=== PATIENT | male | born 1960 | race Caucasian/White ===

== ENCOUNTER 2022-05-08 08:59 | Day surgery (SDC) | payer OTHER ==
--- NOTE | 2022-05-08 07:42 | HP ---
DATE OF SURGERY: 05/08/2022 HISTORY OF PRESENT ILLNESS: The patient is a 61-year-old last colonoscopy eight years or so. No bloody stools. Family history negative for colon cancer. He does have family history of prostate cancer, diabetes and breast cancer. PAST MEDICAL HISTORY: Diabetes type II, hyperlipidemia. PAST SURGICAL HISTORY: Laser eye surgery. Prostate biopsy in the past. MEDICATIONS: Rosuvastatin, glipizide, Jardiance, PreserVision. ALLERGIES: NKDA. FAMILY HISTORY: Negative for colon cancer. He does have family history of prostate cancer, diabetes and breast cancer. SOCIAL HISTORY: No smoking or alcohol use. REVIEW OF SYSTEMS: Fourteen systems reviewed. No chest pain or palpitations. Other systems negative or noncontributory as above and per preadmission questionnaire. PHYSICAL EXAMINATION: GENERAL: No acute distress. HEENT: Sclerae nonicteric. NECK: No JVD. CHEST: Equal excursion, nonlabored breathing. CVS: Regular rate and rhythm. ABDOMEN: Soft. No peritoneal signs. EXTREMITIES: No significant edema. NEURO: Alert, oriented, moving extremities symmetrically. RECTAL: Deferred timed to endoscopy exam. PSYCH: Appropriate mood and affect. IMPRESSION: Need for follow up screening colonoscopy. I feel he is a candidate. Shown the risk sheet explained the procedure in detail including bleeding or infection, risk of bowel injury or perforation, risk of missed or nondiagnosis or incomplete exam possibly requiring barium enema, other studies or procedures, general risk of anesthesia or sedation, risk of bowel prep or sedation but not limited to, consent obtained. Will proceed with outpatient screening colonoscopy.
[~2022-05-08 08:59] MED LIST: Lactated Ringers 1,000 ML IV ONE; Lactated Ringers 1,000 ML IV SCH
[2022-05-08] MEDS ORDERED: Versed 2 MG/2 ML Injection ONE (11:22)
[2022-05-08] MEDS ORDERED: DIPRIVAN 200 MG/20 ML IV ONE ×2 (11:22→11:38)
[2022-05-08 12:18] VITALS: BP 111/93; PULSE 78; O2SAT 97
--- NOTE | 2022-05-09 09:34 | OP ---
SURGERY DATE/TIME: 05/08/2022 1125 PREOPERATIVE DIAGNOSIS: Need for screening colonoscopy. POSTOPERATIVE DIAGNOSES: 1) Mild diverticulosis. 2) Polyps ascending colon and rectosigmoid colon. PROCEDURES: 1) Colonoscopy to cecum. 2) Hot snare polypectomy rectosigmoid colon polyp. 3) Hot biopsy polypectomy of ascending colon polyp. 4) Withdrawal time is about nine minutes. 5) ASA Class II. SURGEON: Dr. Juvenal Downey. ANESTHESIA: MAC. ESTIMATED BLOOD LOSS: Minimal. INDICATIONS: As noted above. Risks and benefits explained in detail but not limited to and consent obtained. DESCRIPTION OF PROCEDURE AND FINDINGS: The patient is taken to the endoscopy room. MAC anesthesia induced. After official time out and no disagreement with planned procedure, digital rectal exam did not reveal any rectal masses. Video colonoscope inserted and passed up through the slightly tortuous sigmoid, descending, transverse and ascending colon around to the cecum. Appendiceal orifice and valve well visualized and photo documented. Prep overall is fair. There was a little bit of liquidy semisolid stool throughout the colon that was suctioned irrigated out as clear as possible. The scope is slowly and carefully withdrawn. There is a small 2 mm polyp removed with hot biopsy polypectomy in the ascending colon. Good hemostasis was noted. The scope was carefully withdrawn. He did have some diverticulosis in the left colon. The scope pulled back to the rectosigmoid area and a 3 mm polyp removed with hot snare polypectomy with brief bursts of cautery. Good hemostasis noted. Otherwise, there were no signs of any other large polyps, masses or any other obstructing lesions. The scope is withdrawn. I went out to the waiting room to look for family afterwards. There were no immediate complications. The patient will be transferred to the recovery room in stable condition.
== END 2022-05-08 12:20 | disposition home or self-care (01) ==
LOC: SDC 08:59
PROVIDERS: ATTEND Surgery
DX: Z12.11 Encounter for screening for malignant neoplasm of colon (principal); K57.30 Diverticulosis of large intestine without perforation or abscess without bleeding; E11.9 Type 2 diabetes mellitus without complications; D12.2 Benign neoplasm of ascending colon; Z80.42 Family history of malignant neoplasm of prostate; Z80.3 Family history of malignant neoplasm of breast
CPT/HCPCS: 82947; J2250; J2704